=== PATIENT | female | born 1995 | race Caucasian/White ===

== ENCOUNTER 2025-03-30 13:25 | Outpatient (CLI) | payer MEDICAID, SELFPAY ==
[2025-03-30 13:47] VITALS: RESP 13; TEMP 36.1; O2SAT 99
[2025-03-30 13:53] VITALS: BMI 28.5
[2025-03-30 14:35] LABS: Color, Urine Yellow (Yellow); Glucose, Dipstick Normal (Normal); Ketone-Dipstick Negative (Negative); Leukocyte Esterase-Dipstick 500 /ul (Negative); Nitrite-Dipstick Negative (Negative); Occult Blood-Urine Negative /ul (Negative); Protein-Dipstick 15 mg/dl (Negative); Specific Gravity, Urine 1.005 (1.002-1.030); Urine Bilirubin Dipstick Negative (Negative)
[2025-03-30 14:47] LABS: ROM Internal Control Test YES-OK TO RESULT pt. (Internal QC); ROM Patient Test Negative (Negative); Record Kit Lot#, ROM+ K3358
[2025-03-30] MEDS: Lactated Ringers 1,000 ML 999 ML IV (15:54)
--- NOTE | 2025-03-30 21:39 | OB.TRI.NOTE ---
HPI - General HPI Narrative LUIGI ODELL, is a 29 F at 35.5 weeks gestation who presents to triage with contractions that have continued throughout the day. Reports she is unsure if leaking any fluid. Positive movements. PFSH PFSH Home Medications Medication Instructions Recorded Last Taken Type vit no.95-ferrous 1 tab PO DAILY 03/30/25 03/29/25 History fumarate 28 mg-folic acid 800 mcg tablet () venlafaxine 75 mg tablet 75 mg PO DAILY 03/30/25 03/29/25 History Allergy/AdvReac Type Severity Reaction Status Date / Time Food Allergies: Uncoded AdvReac Other Verified 03/30/25 13:49 ROS Eyes Eyes: Denies blurry vision Cardiovascular Cardiovascular: Reports none; Denies chest pain at rest, chest pain with activity or dizziness Respiratory/Chest Respiratory/Chest: Denies cough or dyspnea Gastrointestinal Gastrointestinal: Reports none and other; Denies diarrhea or vomiting Genitourinary Genitourinary: Denies dysuria Musculoskeletal Musculoskeletal: Reports none Integumentary Integumentary: Reports none; Denies rash Neurologic Neurologic: Denies dizziness, headache(s) or other visual disturbances Psychiatric Psychiatric: Reports none Physical Exam Const alert and no apparent distress General Appearance: cooperative Orientation / Consciousness: awake Exam Limitations: no limitations HEENT normocephalic Eyes General Eye: normal appearance of both eyes Neck full ROM Chest inspection of chest normal Resp normal respiratory effort and normal air movement Effort and Inspection: symmetric chest movement Auscultation: clear to auscultation bilaterally Cardio regular rate GI soft to palpation, non-tender and non-distended Inspection: and other Back/Spine normal ROM Extremity full ROM, normal capillary refill and no calf tenderness Skin no rashes or lesions noted Neuro oriented x3 and CN's II-XII intact bilaterally Psych mental status grossly normal NST FHR Rate Baby A Baseline: 130 Variability:: Moderate Accelerations:: 15 x 15 Decelerations:: None NST Reactive:: Yes FHR Category:: Category I Uterine Activity:: Irregular Assessment & Plan (1) 35 weeks gestation of : (2) contractions: (3) History of shoulder dystocia: PLAN: Plan ROM plus- NEG UA- positive for leuk. estrace and protein CE 1 thick/ posterior- Unchanged after extened monitoring Started IV and gave 1000 cc bolus Tylenol 1000 mg Po x 1 now D/C home with follow up in office Planning on primary c/s due to hx of shoulder dystocia Dr. Clark updated on A&P
== END 2025-03-30 17:52 | disposition home or self-care (01) ==
LOC: WPOUT 13:40 → WP 13:40
PROVIDERS: Referring Provider Advanced Practice Midwife; Visit Provider Advanced Practice Midwife
DX: O47.03 False labor before 37 completed weeks of gestation, third trimester (principal); Z3A.35 35 weeks gestation of pregnancy; Z87.59 Personal history of other complications of pregnancy, childbirth and the puerperium
CPT/HCPCS: 96360; 59025; 59050; 81002; 84112; 99221; G0378

== ENCOUNTER 2025-04-19 13:55 | Inpatient (IN) | payer MEDICAID, SELFPAY ==
[2025-04-19] VITALS (71 sets, daily range): BP systolic 103–161; BP diastolic 54–92; PULSE 61–110; RESP 14–16; TEMP 36.1–36.7; O2SAT 88–100; BMI 28.6
[2025-04-19] MEDS: Lactated Ringers 1,000 ML 999 ML IV (12:30)
[2025-04-19 12:46] LABS: Hematocrit 35.8 % (37-47); Hemoglobin 12.4 g/dL (12.0-15.0); Mean Corp Hgb Conc 34.6 g/dL (32-36); Mean Corpuscular Volume 89.7 fL (81-99); Mean Platelet Vol. 11.6 fl (6.2-12.0); Platelet Count 118 K/mm3 (150-450); RBC Distribution Width CV 13.2 % (11.6-14.6); RBC Distribution Width SD 42.9 fl (35.1-43.9); Red Blood Count 3.99 M/mm3 (4.2-5.4); White Blood Count 6.5 K/mm3 (4.4-11.0)
[2025-04-19 13:06] LABS: AST(SGOT) 17 U/L (<=31); Alanine Aminotransfer ALT/SGPT 9 U/L (<=34); Estimated Creatinine Clearance 208.65 ml/min (50-250); Uric Acid 4.6 mg/dL (2.6-6.0)
[2025-04-19 13:12] LABS: Creatinine, Urine (random) 165.00 mg/dL (28.00-217.00); Protein, Urine (Random) 36.4 mg/dL (0.0-12.0); Protein:Creat Ratio 221 mg/g CRE (0-200)
[2025-04-19] MEDS: Oxytocin 15 Units/NS 250ml 15 UNITS/250 ML IV.SOLN 2 UNITS IV (14:30)
[2025-04-19] MEDS: Lactated Ringers 1,000 ML 50 ML IV (14:45)
[2025-04-19 15:22] LABS: Syphilis Antibodies Nonreactive (Nonreactive)
[2025-04-19] MEDS: fentaNYL-bupivacaine (epidural) 100 ML BAG EPIDURAL ×2 (17:10→20:52)
--- NOTE | 2025-04-19 19:19 | PCM.HP.OB ---
HPI - General General Date of Admission: 04/19/25 Date of Service: 04/19/25 Chief Complaint: contractions HPI Narrative LUIGI ODELL, is a 29 F who presents 3 para 2 at 38-4/7 weeks gestation complaining contractions. She denies any gross vaginal bleeding or leaking of fluid. She has had good movement. Past obstetrical history was significant for shoulder dystocia. Delivery record reviewed. This estimated weight is the same or less than her previous delivery. Clinically patient feels this fetus is smaller gestational size. Maternal Data Information Final JARED: 04/29/25 Gestational age: 38 4/7 PFSH PFSH Home Medications ?Medication ?Instructions ?Recorded ?Last Taken ?Type vit no.95-ferrous 1 tab PO DAILY 03/30/25 04/18/25 History fumarate 28 mg-folic acid 800 mcg tablet () venlafaxine 75 mg tablet 75 mg PO DAILY 03/30/25 04/18/25 History Allergy/AdvReac Type Severity Reaction Status Date / Time Food Allergies: Uncoded AdvReac Other Verified 04/19/25 10:58 Social History Smoking Status: Former smoker History Elective abortions Hx Para 2 Spontaneous abortions Hx # Term Pregnancies Ectopic pregnancies Hx # Pregnancies Multiple births # of living children ROS Constitutional Constitutional: Denies fatigue, fever(s) or malaise Eyes Eyes: Denies change in vision ENT HEENT: Denies dizziness or headache(s) Cardiovascular Cardiovascular: Denies chest pain, dyspnea or lightheadedness Respiratory/Chest Respiratory/Chest: Denies cough or dyspnea Gastrointestinal Gastrointestinal: Denies change in bowel habits Genitourinary Genitourinary: Denies burning urination or genital lesions Integumentary Integumentary: Denies rash Neurologic Neurologic: Denies confusion, dizziness, headache(s), numbness or weakness Vital Signs Vital Signs Vital Signs: 04/19/25 10:41 04/19/25 10:41 04/19/25 10:41 Temperature Temperature Source Tympanic Pulse Rate Respiratory Rate 14 Blood Pressure BP Systolic BP Diastolic Pulse Ox 100 04/19/25 10:41 04/19/25 10:42 04/19/25 10:42 Temperature 97.0 F L Temperature Source Pulse Rate 65 Respiratory Rate Blood Pressure 161/81 H BP Systolic 161 BP Diastolic 81 Pulse Ox 04/19/25 10:42 04/19/25 10:42 04/19/25 10:58 Temperature Temperature Source Pulse Rate 77 Respiratory Rate Blood Pressure 119/78 BP Systolic 119 BP Diastolic 78 Pulse Ox 99 04/19/25 10:58 04/19/25 11:12 04/19/25 11:12 Temperature Temperature Source Pulse Rate 84 73 Respiratory Rate Blood Pressure 118/65 BP Systolic 118 BP Diastolic 65 Pulse Ox 04/19/25 11:28 04/19/25 11:28 04/19/25 11:42 Temperature Temperature Source Pulse Rate 78 Respiratory Rate Blood Pressure 126/73 H 119/61 BP Systolic 126 119 BP Diastolic 73 61 Pulse Ox 04/19/25 11:42 04/19/25 11:43 04/19/25 11:43 Temperature Temperature Source Pulse Rate 75 80 Respiratory Rate Blood Pressure 126/66 H BP Systolic 126 BP Diastolic 66 Pulse Ox 04/19/25 11:58 04/19/25 11:58 04/19/25 12:13 Temperature Temperature Source Pulse Rate 76 Respiratory Rate Blood Pressure 121/76 H 120/77 BP Systolic 121 120 BP Diastolic 76 77 Pulse Ox 04/19/25 12:13 04/19/25 12:27 04/19/25 12:27 Temperature Temperature Source Pulse Rate 85 68 Respiratory Rate Blood Pressure 103/64 BP Systolic 103 BP Diastolic 64 Pulse Ox 04/19/25 12:43 04/19/25 12:43 04/19/25 12:57 Temperature Temperature Source Pulse Rate 67 Respiratory Rate Blood Pressure 112/79 104/70 BP Systolic 112 104 BP Diastolic 79 70 Pulse Ox 04/19/25 12:57 04/19/25 13:13 04/19/25 13:13 Temperature Temperature Source Pulse Rate 75 82 Respiratory Rate Blood Pressure 118/73 BP Systolic 118 BP Diastolic 73 Pulse Ox 04/19/25 13:28 04/19/25 13:28 04/19/25 13:43 Temperature Temperature Source Pulse Rate 66 Respiratory Rate Blood Pressure 132/66 H 129/74 H BP Systolic 132 129 BP Diastolic 66 74 Pulse Ox 04/19/25 13:43 04/19/25 13:57 04/19/25 13:57 Temperature Temperature Source Pulse Rate 80 69 Respiratory Rate Blood Pressure 117/73 BP Systolic 117 BP Diastolic 73 Pulse Ox 04/19/25 14:13 04/19/25 14:13 04/19/25 14:28 Temperature Temperature Source Pulse Rate 74 Respiratory Rate Blood Pressure 126/74 H 131/65 H BP Systolic 126 131 BP Diastolic 74 65 Pulse Ox 04/19/25 14:28 04/19/25 14:43 04/19/25 14:43 Temperature Temperature Source Pulse Rate 75 81 Respiratory Rate Blood Pressure 113/72 BP Systolic 113 BP Diastolic 72 Pulse Ox 04/19/25 14:58 04/19/25 14:58 04/19/25 15:16 Temperature Temperature Source Pulse Rate 69 Respiratory Rate Blood Pressure 118/76 131/64 H BP Systolic 118 131 BP Diastolic 76 64 Pulse Ox 04/19/25 15:16 04/19/25 16:11 04/19/25 16:11 Temperature Temperature Source Pulse Rate 64 85 Respiratory Rate Blood Pressure 127/61 H BP Systolic 127 BP Diastolic 61 Pulse Ox 04/19/25 16:54 04/19/25 16:54 04/19/25 16:54 Temperature Temperature Source Pulse Rate 81 Respiratory Rate Blood Pressure 132/75 H BP Systolic 132 BP Diastolic 75 Pulse Ox 99 04/19/25 16:59 04/19/25 16:59 04/19/25 16:59 Temperature Temperature Source Pulse Rate 78 Respiratory Rate Blood Pressure 130/87 H BP Systolic 130 BP Diastolic 87 Pulse Ox 100 04/19/25 17:04 04/19/25 17:04 04/19/25 17:04 Temperature Temperature Source Pulse Rate 90 77 Respiratory Rate Blood Pressure 123/92 H BP Systolic 123 BP Diastolic 92 Pulse Ox 04/19/25 17:04 04/19/25 17:04 04/19/25 17:04 Temperature Temperature Source Temporal Pulse Rate Respiratory Rate 16 Blood Pressure BP Systolic BP Diastolic Pulse Ox 99 04/19/25 17:04 04/19/25 17:08 04/19/25 17:08 Temperature 97.8 F Temperature Source Pulse Rate 72 Respiratory Rate Blood Pressure BP Systolic BP Diastolic Pulse Ox 89 04/19/25 17:09 04/19/25 17:09 04/19/25 17:09 Temperature Temperature Source Pulse Rate 71 Respiratory Rate Blood Pressure 125/74 H BP Systolic 125 BP Diastolic 74 Pulse Ox 99 04/19/25 17:14 04/19/25 17:14 04/19/25 17:14 Temperature Temperature Source Pulse Rate 81 Respiratory Rate Blood Pressure 129/77 H BP Systolic 129 BP Diastolic 77 Pulse Ox 99 04/19/25 17:19 04/19/25 17:19 04/19/25 17:19 Temperature Temperature Source Pulse Rate 76 78 Respiratory Rate Blood Pressure 125/69 H BP Systolic 125 BP Diastolic 69 Pulse Ox 04/19/25 17:19 04/19/25 17:20 04/19/25 17:20 Temperature Temperature Source Pulse Rate 71 Respiratory Rate Blood Pressure 125/69 H BP Systolic 125 BP Diastolic 69 Pulse Ox 100 04/19/25 17:24 04/19/25 17:24 04/19/25 17:24 Temperature Temperature Source Pulse Rate 80 Respiratory Rate Blood Pressure 128/88 H BP Systolic 128 BP Diastolic 88 Pulse Ox 100 04/19/25 17:29 04/19/25 17:29 04/19/25 17:29 Temperature Temperature Source Pulse Rate 74 Respiratory Rate Blood Pressure 124/60 H BP Systolic 124 BP Diastolic 60 Pulse Ox 100 04/19/25 17:34 04/19/25 17:34 04/19/25 17:35 Temperature Temperature Source Pulse Rate 75 Respiratory Rate Blood Pressure 115/59 L BP Systolic 115 BP Diastolic 59 Pulse Ox 99 04/19/25 17:35 04/19/25 17:39 04/19/25 17:39 Temperature Temperature Source Pulse Rate 68 67 Respiratory Rate Blood Pressure BP Systolic BP Diastolic Pulse Ox 99 04/19/25 17:40 04/19/25 17:40 04/19/25 17:45 Temperature Temperature Source Pulse Rate 72 Respiratory Rate Blood Pressure 121/64 H 124/66 H BP Systolic 121 124 BP Diastolic 64 66 Pulse Ox 04/19/25 17:45 04/19/25 17:45 04/19/25 17:45 Temperature Temperature Source Pulse Rate 74 77 Respiratory Rate Blood Pressure BP Systolic BP Diastolic Pulse Ox 100 04/19/25 17:49 04/19/25 17:49 04/19/25 17:50 Temperature Temperature Source Pulse Rate 65 73 Respiratory Rate Blood Pressure 106/68 BP Systolic 106 BP Diastolic 68 Pulse Ox 04/19/25 17:50 04/19/25 18:14 04/19/25 18:14 Temperature Temperature Source Pulse Rate 88 Respiratory Rate Blood Pressure 111/66 BP Systolic 111 BP Diastolic 66 Pulse Ox 100 04/19/25 18:33 04/19/25 18:33 04/19/25 18:54 Temperature Temperature Source Pulse Rate 73 Respiratory Rate Blood Pressure 117/68 109/68 BP Systolic 117 109 BP Diastolic 68 68 Pulse Ox 04/19/25 18:54 04/19/25 19:14 04/19/25 19:14 Temperature Temperature Source Pulse Rate 61 72 Respiratory Rate Blood Pressure 119/74 BP Systolic 119 BP Diastolic 74 Pulse Ox Weight Weight: 75.75 kg Body Mass Index (BMI) 28.6 Physical Exam Const alert and no apparent distress General Appearance: cooperative HEENT normocephalic Resp normal respiratory effort Cardio regular rate GI soft to palpation GI Narrative: gravid, nontender, appropriate for gestational age Extremity no calf tenderness General Extremity: edema Skin no wounds Rashes: No rashes noted Psych activity/motor behavior normal Labs Labs Labs: Blood Type O POSITIVE Antibody Screen NEGATIVE Hct, (37-47) 35.8 % L Hgb, (12.0-15.0) 12.4 g/dL Syphilis Total Ab, (Nonreactive) Nonreactive Assessment & Plan (1) History of shoulder dystocia: PLAN: Estimated weight is less than previous delivery in less than 4500 g. Clinically pelvis is adequate to expect vaginal delivery. I discussed with patient risk-benefit and alternatives to a delivery versus a vaginal delivery. After review of her operative report and listening the patient's delivery story, I discussed with her that though there is a risk of recurrent shoulder dystocia and it may be worse than previous delivery there is also a high likelihood that she would not have a shoulder dystocia of this . I reviewed with her that I would not recommend instrumental delivery. After discussion the risk benefits and alternatives patient elects for trial of labor. (2) Spontaneous onset of labor: PLAN: Pitocin augmentation as needed. May have routine pain control measures as indicated and as desired. (3) 38 weeks gestation of :
[2025-04-19] MEDS: Ketorolac 30 MG/ML Syringe IV (22:50)
--- NOTE | 2025-04-19 22:59 | EX.PCM.OBVAG ---
Assessment & Plan (1) (spontaneous vaginal delivery): (2) Single live : Maternal Data Information Final JARED: 04/29/25 Gestational age: 38 4/7 Vaginal Delivery Maternal Presentation Maternal Presentation: Active Labor Vaginal Delivery Information Procedure Performed: Spontaneous Vaginal Delivery Surgeon/Practitioner: Gema Grimes Date of Procedure: 04/19/25 Pre-Procedure Diagnosis: labor Post-Procedure Diagnosis: same Type of anesthesia: Epidural Estimated Blood Loss: 300 Time of Delivery: 22:37 Findings Description of procedure: A vigorous female was delivered AKHIL over an intact perineum. The remainder the infant was delivered with maternal pushing and gentle traction only in less than 15 seconds. The Pitocin infusion was initiated for active management of the third stage. The cord was clamped and cut after 45 seconds. The infant was making some respiratory effort but was not vigorously crying and was transported to the [facility] for evaluation. The infant was attended to by the waiting nursing staff. The placenta was delivered spontaneously and intact. The cervix and vagina were intact. Sponge and needle counts were correct. A vaginal sweep was completed by me. 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
[2025-04-19] MEDS: Oxytocin 15 Units/NS 250ml 15 UNITS/250 ML IV.SOLN 83 UNITS IV (23:20)
[2025-04-20] VITALS (26 sets, daily range): BP systolic 113–132; BP diastolic 68–85; PULSE 64–80; RESP 16–18; TEMP 36.2–36.7; O2SAT 96–99
--- NOTE | 2025-04-20 08:40 | PCM.PN.CNM ---
Subjective Subjective Patient seen at bedside. Denies any pain. Ambulating and voiding without difficulty. Lochia decreasing. Objective Data Objective Data Vital Signs: Vital Signs Temp Pulse Resp BP Pulse Ox O2 Del Method 97.1 F L 68 16 120/85 H 97 Room Air 04/20/25 07:47 04/20/25 07:47 04/20/25 07:47 04/20/25 07:47 04/20/25 07:47 04/20/25 07:47 Oxygen Delivery Method Room Air Weight: 167 lb Body Mass Index (BMI) 28.6 Intake & Output: Intake and Output for Last 24 Hours 04/18/25 04/19/25 04/20/25 23:59 23:59 23:59 Intake Total 2250.00 / 2250.00 250 / 250 Output Total 950 / 950 200 / 200 Balance 1300.00 / 1300.00 50 / 50 Lab / Micro Data Attestation: I reviewed the patient's lab results. 04/19/25 12:25 04/19/25 12:25 Labs: Laboratory Results - last 24 hr 04/19/25 12:25: WBC 6.5, RBC 3.99 L, Hgb 12.4, Hct 35.8 L, MCV 89.7, MCH 31.1, MCHC 34.6, RDW Std Deviation 42.9, RDW Coeff of Ale 13.2, Plt Count 118 L, MPV 11.6, Creatinine 0.40 L, Estim Creat Clear Calc 208.65, Est GFR (MDRD) Non-Af 138, Uric Acid 4.6, AST 17, ALT 9, U Random Total Protein 36.4 H, Urine Creatinine 165.00, Protein/Creatinin Ratio 221 H 04/19/25 14:15: Syphilis Total Ab Nonreactive, Blood Type O POSITIVE, Antibody Screen NEGATIVE ROS Eyes Eyes: Denies blurry vision, change in vision or spots in vision ENT HEENT: Denies dizziness or headache(s) Cardiovascular Cardiovascular: Denies abdominal pain, chest pain or dyspnea Respiratory/Chest Respiratory/Chest: Denies cough, dyspnea, shortness of breath at rest or shortness of breath with exertion Gastrointestinal Gastrointestinal: Denies abdominal pain, diarrhea or vomiting Genitourinary Genitourinary: Denies change in urinary stream, difficulty urinating or dysuria Musculoskeletal Musculoskeletal: Reports none Integumentary Integumentary: Denies rash Neurologic Neurologic: Denies dizziness, headache(s), memory loss or weakness Physical Exam Const alert and no apparent distress General Appearance: cooperative and comfortable Exam Limitations: no limitations HEENT normocephalic Eyes General Eye: normal appearance of both eyes Neck full ROM General: normal visual inspection Chest Chest: symmetrical chest wall rise Resp normal respiratory effort and normal air movement Effort and Inspection: symmetric chest movement Auscultation: clear to auscultation bilaterally Cardio regular rate and regular rhythm GI normal to inspection, nondistended, normoactive bowel sounds Back/Spine normal ROM Extremity full ROM and no calf tenderness General Extremity: normal exam except as noted Skin no rashes or lesions noted Neuro oriented x3 Speech: speech normal Psych mental status grossly normal Thought Process: normal thought process Assessment & Plan (1) Single live : (2) (spontaneous vaginal delivery): (3) Care and examination of lactating mother: PLAN: Plan PPD 1 Routine care support Anticipate discharge home tomorrow
[2025-04-20] MEDS: Hydrocortisone 2.5% Crm 1 APPLIC TOPICAL (18:46)
[2025-04-20] MEDS: SELF ADMINISTRATION OF MEDS 1 EACH NOTE (18:47)
[2025-04-21 03:02] VITALS: PULSE 62; RESP 16; TEMP 36.6; O2SAT 98
--- NOTE | 2025-04-21 07:07 | PCM.DC.SUM ---
Providers Date of Admission: 04/19/25 Primary Care Physician: No Primary Care Phys Reason For Visit: VAGINAL DELIVERY Diagnosis Discharge Diagnosis (1) Single live : Status: Acute Code(s): Z37.0 - Single live (2) (spontaneous vaginal delivery): Status: Acute Code(s): O80 - Encounter for full-term uncomplicated delivery (3) Care and examination of lactating mother: Status: Acute Code(s): Z39.1 - Encounter for care and examination of lactating mother Plan PPD 2 Routine care support D/C home with follow up in office Medications at Discharge Home Medications vit no.95-ferrous fumarate 28 mg-folic acid 800 mcg tablet () 1 tab PO DAILY 03/30/25 venlafaxine 75 mg tablet 75 mg PO DAILY 03/30/25 acetaminophen 500 mg tablet 1,000 mg (2 x 500 mg) PO Q6H PRN PRN Pain 1-10 Or Fever #0 tabs 04/21/25 ibuprofen 600 mg tablet 600 mg PO Q6H PRN PRN Pain Score 1-10 #0 tabs 04/21/25 Hospital Course Operations None Procedures None Summary of Care Provided Minutes Spent on Discharge: 15 Hospital Course: Patient had vaginal delivery. Hospital course was uneventful. Physical Exam Narrative Patient seen at bedside. Denies pain. Ambulating and voiding without difficulty. Lochia decreased. Desires discharge home today. Const alert and oriented x3 General Appearance: Negative for in distress HEENT normocephalic Eyes General Eye: normal appearance of both eyes Neck General: normal visual inspection Chest Chest: symmetrical chest wall rise Resp normal respiratory effort and normal air movement Effort and Inspection: symmetric chest movement; Negative for tachypneic Auscultation: clear to auscultation bilaterally Cardio regular rate and regular rhythm Peripheral Pulses: pulses 2+ throughout GI normal to inspection, nondistended, normoactive bowel sounds Narrative: Ice to perineum OB / External & Speculum: vaginal bleeding and other Lochia decreasing Uterus Palpation: uterus fundus firm (Below U) Extremity normal to inspection, full ROM and normal capillary refill Skin no rashes or lesions noted Neuro oriented x3, CN's II-XII intact bilaterally and gait normal Psych mental status grossly normal, thought process normal and activity/motor behavior normal Weight / BMI Weight Weight: 167 lb Body Mass Index (BMI) 28.6 ABG / Lab / Microbiology Data 04/19/25 12:25 04/19/25 12:25 D/C Instructions Discharge Activity: Return to Normal Activity, No Restrictions, May Drive, May Shower and May Take a Tub Bath (Warm water only. No bath salts, soaps, bubbles) May resume sexual activity in: 6-8 weeks Weight Bearing Status: Weight bearing as tolerated Call your doctor if you observe: Fever of 101 or Higher, Inability to urinate, Using more than 1 pad per hour, Shortness of breath, Dizziness, Chest pain, Calf discomfort and Uncontrolled pain DC O2, CPAP, BIPAP Needs Home O2 Discharge instructions: No Please Follow Up With: [facility] Jose Angel LAWS When: 2 weeks in office or virtual Meaningful Use Info Meaningful Use Meaningful Use Diagnoses (Choose all that apply): None applicable Discharge Plan Admission Admit Date/Time: 04/19/25 13:55 Primary Reason for Your Visit: Labor and Delivery Attending Provider: Gema Grimes Primary Care Provider: Care Physician,Cindy Primary Discharge Orders/Prescriptions Prescriptions: New acetaminophen 500 mg Tablet 1,000 mg PO Q6H PRN PRN (Reason: Pain 1-10 Or Fever) Qty: 0 0RF ibuprofen 600 mg Tablet 600 mg PO Q6H PRN PRN (Reason: Pain Score 1-10) Qty: 0 0RF Continued venlafaxine 75 mg tablet 75 mg PO DAILY PNV no.95-ferrous fumarate-FA [] 28 mg iron- 800 mcg tablet 1 tab PO DAILY Referrals / Follow Up: Care Physician,No Primary [Primary Care Provider, Medical] Disposition Disposition (needs filled in before D/C Order can be placed): Home, Self Care
[2025-04-21 08:10] VITALS: BP 96/66; PULSE 70; RESP 16; TEMP 36.7; O2SAT 99
[2025-04-21] MEDS: FLU VACCINE 2025-26(6MOS UP) 45 MCG/0.5 ML SYRINGE IM (09:32)
--- NOTE | 2025-04-24 12:46 | CASEMGMT ---
Social Work Assessment Labor and Delivery Unit Patient Address: [address] [place] [address] Phone number: [phone] Date of Referral: 04/19/25 Time of Referral:? 135 Referred By: Dr. Grimes Date of Intervention: ??04/20/25 Time of Intervention:? 1320 Reason for Referral:? mental health Sw completed chart review and acknowledges social work consult. Sw presented to bedside and introduced self to mother of baby (GLENIS- Delmy) and father of baby (FOJie- Kenroy). Sw explained reason for sw involvement and completed psychosocial assessment. History obtained from: medical records, MOB and FOB Household composition: Currently residing in the family home is JOEL GALVIN, their 4 year old son: Ulices, and GLENIS's 7 year old daughter: Tammy. baby to be included in residence when ready for discharge. Also residing with the family is paternal grandmother- she suffered a stroke several years ago and lives in the basement of the home- GLENIS is her primary caregiver. Parents deny any housing concerns, stating their home is safe and secure. Patient's parent/guardian status:? ?MOB state that she and FOJie have been together in a committed romantic relationship for 1 year. Sw asked parents how they have a 4 year old together if this is the first time they have been in a relationship. GLENIS stated that they have known each other for a really long time, and had a one night stand 4 years ago that resulted in the and delivery of their son. MOB states that while co-parenting with one another they forged a friendship, which ultimately became more than that. No concerns reported of domestic violence or intimate partner violence. Medical History: ?GLENIS is 29 year old female who is 3, para 2- now 3 following labor and delivery of . GLENIS received routine care during with [facility]. GLENIS presented to hospital and delivered baby via spontaneous vaginal delivery. Baby boy, named Lior Rivera, was born weighing 7lb 13oz and had apgars of 7 and 8 at one and five minutes of life, respectfully. GLENIS states that she is breast feeding and baby will be followed by Dr. Harrington for pediatrics. Educational Status:?Both parents report to graduating from high school and MOB obtained some college, but did not obtain a degree. No problems with reading, learning or comprehension. 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 Supplies:?? All necessary baby supplies obtained, including: car seat, safe sleep space, clothes, diapers and wipes. Childcare/Caregiver(s):? GLENIS states that she will be the primary caregiver along with JOEL. Transportation:?Both parents have their drivers license along with reliable means of transportation, no barriers. ? Programs/Agencies Involved: ??GLENIS is connected to insurance through [employer], as well as PIP and WIC. ? Children Services/Legal Issues: Parents deny prior involvement wit children services, no issues or concerns warranting referral to be made at this time. ??? Behavioral Health Issues: ??Mental Health History:?JOEL denies mental health history. GLENIS states that she has been diagnosed with anxiety, depression, panic attacks, and BiPolar. GLENIS is prescribed Effexor to help her manage her mental health symptoms. GLENIS states that although she has these mental health symptoms, she has never struggled with any baby blues or mood or anxiety symptoms after her other deliveries.?? Substance Use History: Parents deny substance use prior to and during . ?? Family History:??Parents deny family history of substance use or significant mental health diagnoses. ??? Drug Screens: No drug screens observed while completing chart review. ?? Family/Social Stressors:? Parents deny any issues, concerns or stressors at this time. Support Systems: GLENIS reports that JOEL and her side of the family are their biggest supports. Depression/Shaken Baby/Safe Sleeping:? Sw educated parents on signs and symptoms of baby blues and mood and anxiety disorders to be mindful of during this period. GLENIS states that she did feel slightly anxious during this . GLENIS reports that she felt over stimulated with her other children, and she is thankful that she is no longer as she feels more like herself now that she is not any more. GLENIS states that now that the baby is here, she feels happy, denies feeling down, anxious, sad or depressed. GLENIS states that if she were to feel any symptoms of baby blues or depression or anxiety she would talk to FOB about it. MOB states that she is open regarding her mental health and feels like she has supports that she can talk to. FOB states that if MOB were to struggle he would be able to recognize that. FOB states that although they have only been romantically involved for one year, they have been friends for a lot longer than that. Sw explained to parents that MOB is more at risk to experiencing symptoms due to her mental health history, as well as psychosis due to having diagnosis of BiPolar. MOB expressed understanding. Sw educated parents on shaken baby prevention and ABCs of safe sleep, parents expressed understanding. ASSESSMENT:? MOB and baby admitted following labor and delivery. MOB with mental health history of anxiety, depression, panic attacks and BiPolar. MOB states that her mental health is primarily prior to becoming a mother, or following her first delivery when she lacked support from that previous partner. MOB denies ever experiencing any baby blues or depression/ anxiety. MOB states that she has a lot of support found in FOB and other family members and friends. GLENIS is prescribed Effexor to help her manage her mental health symptoms, she reports that she can tell a difference with the medication, and is not planning on stopping the medication during this period. MOB states that she is also receptive to counseling services if she were to struggle during this time, however she does not anticipate doing so, given that she has not in the past. Sw and MOB discussed coping skills for MOB to utilize if she were to have a hard time. MOB and FOB both present and active in completion of assessment. MOB has obtained all necessary baby supplies and has natural supports in place. Both parents were observed to hold baby lovingly and attentively. PLAN:? No other services requested or indicated. MOB and baby to be discharged when medically ready. Parents were provided literature regarding: signs and symptoms of baby blues and mood and anxiety disorders, Help Me Grow, shaken baby prevention, ABCs of safe sleep and a list of county resources that are available for them should any needs present themselves. Rocco Hodgson, TIME ANALYSIS CLERK, [employer]
== END 2025-04-21 09:50 | disposition home or self-care (01) | DRG 560 ==
LOC: WPOUT 14:31 → WP 14:31
PROVIDERS: Admitting Provider Obstetrics & Gynecology; Referring Provider Obstetrics & Gynecology; Visit Provider Obstetrics & Gynecology
DX: O80 Encounter for full-term uncomplicated delivery (principal); Z37.0 Single live birth; Z87.59 Personal history of other complications of pregnancy, childbirth and the puerperium; Z3A.38 38 weeks gestation of pregnancy; Z87.891 Personal history of nicotine dependence
CPT/HCPCS: 59025; 59050; 82565; 82570; 84156; 84450; 84460; 84550; 85027; 86780; 86850; 86900; 86901; 99221; G0378; J2405